=== PATIENT | female | born 1970 | race Caucasian/White ===

== ENCOUNTER 2020-01-16 08:23 | Day surgery (SDC) | payer OTHER ==
[~2020-01-16] VITALS: Ht 162.6 cm; Wt 77.6 kg
[2020-01-16] MEDS ORDERED: MIDAZOLAM 2 MG/2 ML VIAL ONE ×2 (09:41→09:56)
[2020-01-16] MEDS ORDERED: LIDOCAINE 2% 100 MG/5 ML UJET TP ONE (09:41)
[2020-01-16] MEDS ORDERED: fentaNYL 0.05 MG/ML VIAL ONE (09:41)
[2020-01-16] MEDS ORDERED: MIDAZOLAM 2 MG/2 ML VIAL IVP ONE (12:00)
[2020-01-16] MEDS ORDERED: fentaNYL 0.05 MG/ML VIAL IVP ONE (12:00)
== END 2020-01-16 12:50 | disposition home or self-care (01) ==
LOC: MDS 08:23 → MMU 08:28 → MDS 12:50
PROVIDERS: ATTEND Internal Medicine Gastroenterology
DX: K62.5 Hemorrhage of anus and rectum (principal); K59.00 Constipation, unspecified; E66.8 Other obesity; Z80.0 Family history of malignant neoplasm of digestive organs
CPT/HCPCS: 45378; 81025; J2250; J3010